=== PATIENT | female | born 1965 | race Caucasian/White ===

== ENCOUNTER 2018-01-05 12:29 | Outpatient (CLI) | payer OTHER ==
[2018-01-05 13:12] LABS: Bilirubin Negative (Negative); Blood, Urine Trace (Negative); Glucose, Urine (Dipstick) Negative (Negative); Leukocyte Small (Negative); Nitrite Negative (Negative); Protein, Urine (Dipstick) Negative (Neg-Trace); Specific Gravity, Urine 1.025 (1.005-1.030); Urobilinogen 0.2 mg/dL (0.2-1.0); pH, Urine 5.5 (5.0-9.0)
[2018-01-05 13:20] LABS: Clarity Hazy (Clear); RBC/HPF 0-3 HPF (0-3)
[2018-01-05 13:21] LABS: Bacteria/HPF 1+ HPF (None Seen); Squamous Epithelial 0-3 HPF (0-3)
[2018-01-05 13:23] LABS: ALT (SGPT) 67 U/L (8-55); AST (SGOT) 41 U/L (5-34); Albumin 4.7 g/dL (3.5-5.0); Alkaline Phosphatase 75 U/L (40-150); Anion Gap 14 mmol/L (10-20); BUN (Urea Nitrogen) 18 mg/dL (9.8-20.1); Bilirubin, Total 1.2 mg/dL (0.2-1.2); Calc. Creatinine Clearance 0 mL/min (70-130); Calcium 9.9 mg/dL (7.8-10.44); Carbon Dioxide 25 mmol/L (22-29); Cardiac Risk 3.8 (Less than 4.5); Chloride 106 mmol/L (98-107); Cholesterol 294 mg/dl (< 200 Desired); Estimated GFR-MDRD 83; Globulin 3.3 g/dL (2.4-3.5); Glucose 92 mg/dL (70-105); HDL Cholesterol 77 mg/dL (>60 Neg Risk); LDL Cholesterol, Calculated 196 mg/dL; Potassium 3.9 mmol/L (3.5-5.1); Sodium 141 mmol/L (136-145); Triglycerides 103 mg/dL (Less than 150)
[2018-01-05 13:43] LABS: Band 1 % (5-11); Eosinophils 5 % (0-10); Lymphocytes 52 % (21-51); MDiff Complete? YES; Mean Corpuscular HGB CONC 31.4 g/dL (32.0-36.0); Mean Corpuscular Hemoglobin 28.1 pg (27.0-31.0); Mean Corpuscular Volume 89.3 fL (78.0-98.0); Mean Platelet Volume 7.5 fL (7.4-10.4); Monocytes 8 % (0-10); Neutrophil 30 % (42-75); PLT Morphology Comment Appears Adequate; Platelet Count 248 thou/uL (130-400); RBC Distribution Width 12.2 % (11.5-14.5); RBC Morphology Normal; Reactive Lymphocytes 3 % (0-10); Red Blood Cell (RBC) Count 4.98 mill/uL (4.20-5.40); White Blood Cell (WBC) Count 4.9 thou/uL (4.8-10.8)
--- NOTE | 2018-01-05 14:24 | RAD ---
SIX VIEWS OF THE CERVICAL SPINE: DATE: 01/05/2018. 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 HISTORY: Neck strain, chronic neck pain radiating down both shoulders. FINDINGS: There is disk space narrowing with degenerative end plate change and anterior osteophyte formation at C6-7, and to a lesser degree, C5-6. No anterolisthesis or retrolisthesis is seen on the neutral, flexion, or extension lateral imaging. Frontal imaging demonstrates mid cervical spine facet and uncovertebral osteophyte formation, left gr eater than right, most prominent at the C4-5 and C5-6 levels. Open mouth odontoid view demonstrates a grossly unremarkable dens in C1-2 articulation. IMPRESSION: Cervical spine degenerative change, most significant at the C6-7 level. POS: EFREN
--- NOTE | 2018-01-05 14:32 | RAD ---
SIX VIEWS LUMBAR SPINE: DATE: 01/05/2018. HISTORY: Chronic low back pain. FINDINGS: Images include neutral lateral, flexion, and extension lateral imaging. Frontal imaging and bilatera l oblique views are provided as well. Five lumbar-type vertebral bodies are present with intact pedicles on frontal imaging. Minimal dextr oscoliosis of the lumbar spine noted. The oblique imaging demonstrates no evidence for a pars defect on either side at any level. Neutral lateral exam demonstrates normal vertebral body height and alignment. There is mild anterior osteophyte formation at L1-2, L2-3, and L3-4. With extension and flexion and imaging, there is no a nterolisthesis or retrolisthesis. IMPRESSION: No acute osseous abnormality. POS: EFREN
== END 2018-01-05 12:30 | disposition home or self-care (01) ==
LOC: SCSRAD 12:29
PROVIDERS: ATTEND Family Medicine
DX: S16.1XXA Strain of muscle, fascia and tendon at neck level, initial encounter (principal); S39.012A Strain of muscle, fascia and tendon of lower back, initial encounter; Z12.11 Encounter for screening for malignant neoplasm of colon; M47.892 Other spondylosis, cervical region
CPT/HCPCS: 36415; 72050; 72100; 80053; 80061; 81001; 84443; 85025